=== PATIENT | male | born 1950 | race Caucasian/White ===

== ENCOUNTER 2018-12-22 16:38 | Emergency (ER) | payer MEDICARE, BC ==
[2018-12-22] MEDS ORDERED: Fluorescein 1 MG Ophth Strip EYERT ONE (16:51)
[2018-12-22] MEDS ORDERED: Tetracaine HCl/PF 0.5% 4 ML Bottle EYERT ONE (16:51)
--- NOTE | 2018-12-22 16:54 | EDM.PDOC ---
ED HPI GENERAL MEDICAL PROBLEM - General Chief Complaint: Eye Problems Stated Complaint: SOMETHING WRONG WITH EYES Time Seen by Provider: 12/22/18 17:00 Source of Information: Reports: Patient, RN History Limitations: Reports: No Limitations - History of Present Illness INITIAL COMMENTS - FREE TEXT/NARRATIVE: c/ right eye pain since this am after mowing, Irritated and light sensitive. Also nasal symptoms, initial congestion then runny nose. Scheduled to see equipment specialist for routine care on Tuesday. - Related Data Allergies Allergy/AdvReac Type Severity Reaction Status Date / Time No Known Allergies Allergy Verified 12/22/18 16:57 ED ROS GENERAL - Review of Systems Review Of Systems: ROS reveals no pertinent complaints other than HPI. ED EXAM GENERAL W FULL EYE - Physical Exam Exam: See Below Exam Limited By: No Limitations General Appearance: Alert, Mild Distress Eye Exam: Bilateral Eye: EOMI, Normal Fundi, PERRL Eyelids: Right: Edema (mild upper), Lid Everted for Exam, Left: Normal Appearance Conjunctiva & Sclera: Right: Injected Cornea Exam: Right: Normal Appearance, Examined with Flourescein Pupils: Normal Accommodation Pupillary Size: Left: 3 mm Pupillary Reaction: Bilateral: Brisk Ears: Normal External Exam Nose: Normal Inspection, Clear Rhinorrhea Throat/Mouth: Normal Inspection Head: Atraumatic, Normocephalic Neck: Limited Range of Motion Respiratory/Chest: No Respiratory Distress, Lungs Clear Extremities: Normal Inspection Neurological: Alert, Oriented Psychiatric: Normal Affect, Normal Mood Skin Exam: Warm, Dry, Intact Course - Vital Signs Last Recorded V/S: Last Vital Signs Temp 96.0 F 12/22/18 17:10 Pulse 72 12/22/18 17:10 Resp 18 12/22/18 17:10 BP 153/75 H 12/22/18 17:10 Pulse Ox 100 12/22/18 17:10 - Orders/Labs/Meds Meds: Medications Discontinued Medications Generic Name Dose Route Start Last Admin Trade Name Fretor PRN Reason Stop Dose Admin Fluorescein Sodium 1 mg 12/22/18 16:51 12/22/18 16:56 Ful-Jenae EYERT 12/22/18 16:52 1 mg ONETIME ONE Administration Tetracaine HCl 1 ml 12/22/18 16:51 12/22/18 16:56 Tetracaine 0.5% Steri-Unit Saima EYERT 12/22/18 16:52 1 ml ASDIRECTED ONE Administration Departure - Departure Time of Disposition: 17:26 Disposition: Home, Self-Care 01 Condition: Good Clinical Impression: Irritation of right eye - Discharge Information *PRESCRIPTION DRUG MONITORING PROGRAM REVIEWED*: No *COPY OF PRESCRIPTION DRUG MONITORING REPORT IN PATIENT YULISA: No Instructions: Allergic Conjunctivitis, Adult Forms: ED Department Discharge Additional Instructions: dark glasses lubricating eye drops every 2 hours as needed if increased pain or redness follow up Follow up if increased pain redness, change in vision Attend prior scheduled appointment with equipment specialist on Tuesday.
== END 2018-12-22 17:35 | disposition home or self-care (01) ==
LOC: DL.ED 16:38
DX: H57.89 Other specified disorders of eye and adnexa (principal)
CPT/HCPCS: 99283